=== PATIENT | male | born 1965 | race African-American/Black ===

== ENCOUNTER 2018-06-14 19:09 | Emergency (ER) | payer OTHER ==
[~2018-06-14] VITALS: Ht 182.9 cm; Wt 112.5 kg
--- NOTE | ~2018-06-14 | EKG ---
[place] [address] [employer] [facility] [place] [address] ELECTROCARDIOGRAM REPORT Name: MANAN BUCKLEY Room #: [facility]P [facility]OSAJaime#: [id number] Admission: 06/14/18 Attend Phys: Discharge: 06/14/18 Date of : 65 Report #: [id number] THIS REPORT FOR: //name// [facility] ED Test Date: 2018-06-14 Test Time: 20:00:09 Pat Name: MANAN BUCKLEY Department: Room: Gender: M [employer]ink[employer] Installer: [facility] : 1965 Requested By: Kendal Stinson Order Number: [id number] MD: Indra Goodwin Measurements Intervals [place] Rate: 70 P: 35 ND: 173 QRS: -43 QRSD: 132 T: 112 QT: 407 QTc: 440 Interpretive Statements Sinus rhythm Nonspecific IVCD with LAD Poor R wave progression Nonspecific T wave abnormality Baseline wander in lead(s) II,V1,V2,V3,V4 Compared to ECG 01/15/2009 15:30:50 Intraventricular conduction delay now present Poor R wave progression now present nonspecific T wave abnormality now present Electronically Signed On 06-15-2018 8:20:43 CDT by Indra Goodwin [email or web address] <ELECTRONICALLY SIGNED> By: Indra Goodwin MD, FACC 06/15/18 0820 99 99 Indra Goodwin MD, FACC /EPI
[2018-06-14] MEDS ORDERED: LANTUS100 UNIT/M SUBQ (19:20)
[2018-06-14] MEDS ORDERED: LISINOPRIL2.5 MG PO (19:20)
[2018-06-14] MEDS ORDERED: FUROSEMIDE 20 M20 M1 PO (19:21)
[2018-06-14] MEDS ORDERED: NOVOLOG100 UNIT/1 SUBQ (19:21)
[2018-06-14 20:13] LABS: ABSOLUTE NEUTROPHILS 4.9 thou/uL (1.4-8.2); BASOPHILS 0.8 % (0.0-2.0); EOSINOPHILS 2.1 % (0.0-3.0); HEMATOCRIT 29.4 % (42.0-52.0); HEMOGLOBIN 10.1 gm/dL (14.0-18.0); LYMPHOCYTES 32.8 % (24.0-44.0); MCH 31.7 pg (26.0-34.0); MCHC 34.5 g/dL (28.0-37.0); MCV 91.9 fL (80.0-100.0); MONOCYTES 7.9 % (1.0-8.0); PLATELET COUNT 242 thou/uL (150-400); POLYS 56.4 % (36.0-66.0); WBC 8.7 thou/uL (4.0-11.0)
[2018-06-14 20:21] LABS: CALCIUM 9.1 mg/dL (8.5-10.1); CREATININE 1.7 mg/dL (0.7-1.3)
[2018-06-14 20:26] LABS: PROTIME 10.7 Seconds (9.3-11.4)
[2018-06-14] MEDS ORDERED: LISINOPRIL20 MG PO (20:47)
[2018-06-14] MEDS ORDERED: COREG25 MG PO (20:49)
[2018-06-14] MEDS ORDERED: LASIX 40 MG TAB40 M2 PO (21:10)
[2018-06-14] MEDS ORDERED: POTASSIUM20 PO (21:10)
[2018-06-14 21:41] VITALS: BP 167/92
== END 2018-06-14 21:41 | disposition home or self-care (01) ==
LOC: ER 19:09
PROVIDERS: Physician Assistant
DX: R60.0 Localized edema (principal); D64.9 Anemia, unspecified; N18.3 Chronic kidney disease, stage 3 (moderate); E11.22 Type 2 diabetes mellitus with diabetic chronic kidney disease; I50.9 Heart failure, unspecified; F17.200 Nicotine dependence, unspecified, uncomplicated; Z79.4 Long term (current) use of insulin